=== PATIENT | male | born 1985 | race Caucasian/White ===

== ENCOUNTER 2018-03-19 09:52 | Emergency (ER) | payer BC ==
--- NOTE | 2018-03-19 12:07 | UC ---
Dental HPI - HPI Summary HPI Summary: Pt with discomfort and swelling left upper tooth. no fever, chills. States feeling discomfort in ear x 2 days. no nausea, vomiting. little relief with motrin. no difficulty breathing. Pt has appt with dental next week. Pt chew tobacco medications reviewed this visit - History of Current Complaint Stated Complaint: DENTAL COMPLAINT Time Seen by Provider: 03/19/18 11:52 Hx Obtained From: Patient Onset/Duration: Gradual Onset - Allergies/Home Medications Allergies/Adverse Reactions: Allergies Allergy/AdvReac Type Severity Reaction Status Date / Time No Known Allergies Allergy Verified 03/19/18 12:01 PMH/Surg Hx/FS Hx/Imm Hx Previously Healthy: Yes - Family History Known Family History: Positive: Other - noncontributory - Social History Occupation: Employed Full-time Lives: With Family Alcohol Use: Occasionally Type: Smokeless Tobacco Review of Systems Constitutional: Negative Skin: Negative ENT: Dental Pain All Other Systems Reviewed And Are Negative: Yes Physical Exam - Summary Physical Exam Summary: Vital Signs Reviewed: Yes A+Ox3, no distress Eyes: Conjunctiva Clear, GEORGI. EOM intact and full ENT: Hearing grossly normal TM x 2 clear, turbinates wnl mmoist, uvula midline , no exudate, no erythema #15 tooth with buccal edema and tenderness visible cavity, no purluent discharge no intraoral edema Neck: Positive: Supple Respiratory: Positive: No respiratory distress, No accessory muscle use + CTA throughout no w/r Cardiovascular: RRR nl s1, s2 no m/r CBT <2 sec abd soft + BS nt/nd no guarding, no distension Musculoskeletal Exam: DARNELL x 4 without difficulty Strength Intact, ROM Intact Neurological: Positive: Alert, + sensation throughout Psychological: Positive: Normal Response To Family Skin: Positive: no rash, no ecchymosis Triage Information Reviewed: Yes Dental Complaint Course/Dx - Course Course Of Treatment: Pt with progressive dental pain. Pt with abscess #15 tooth. no airway involvement. abx. swith and spit. appt with dentist as schedule. return precautions - Differential Dx/Diagnosis Provider Diagnoses: dental abscess Discharge - Sign-Out/Discharge Documenting (check all that apply): Patient Departure All imaging exams completed and their final reports reviewed: No Studies - Discharge Plan Condition: Stable Disposition: HOME Prescriptions: Chlorhexidine MOUTHWASH 0.12%* [Peridex Mouth Wash 0.12%*] 15 ml .SEE ORDER TID #150 oral.soln Clindamycin Cap(NF) [Clindamycin Cap 300 mg Cap(NF)] 300 mg PO TID #30 cap Lidocaine 2% VISCOUS* [Xylocaine 2% Viscous*] 15 ml SWISH SPIT Q6H PRN #1 btl PRN Reason: Pain Patient Education Materials: Dental Abscess (ED) Referrals: No Primary Care Phys,NOPCP [Primary Care Provider] - Additional Instructions: - Take antibiotics as prescribed until gone - Swish and spit with mouth rinse as instructed - Okay to apply numbing medication to your tooth every 6 hours for pain - Okay to Tylenol every 6 hours for pain - You have been given a dental referral list - if you develop uncontrolled pain, facial swelling, vomiting, fevers, or any other concerns it is recommended you go to the emergency department - Billing Disposition and Condition Condition: STABLE Disposition: Home
[2018-03-19 12:08] VITALS: BP 140/90
== END 2018-03-19 13:01 | disposition home or self-care (01) ==
LOC: UCCORT 09:52
DX: K04.7 Periapical abscess without sinus (principal)
CPT/HCPCS: 99202; G0463